=== PATIENT | female | born 1965 | race Asian ===

== ENCOUNTER 2019-01-06 22:28 | Emergency (ER) | payer OTHER, SELFPAY ==
[2019-01-06 22:31] VITALS: PULSE 213; RESP 24; TEMP 36.2; O2SAT 99
--- NOTE | 2019-01-06 22:54 | DI.RAD.S_ITS ---
PROCEDURE: XR CHEST 1V INDICATIONS: chest pain TECHNIQUE: One view of the chest was acquired. COMPARISON: None. FINDINGS: Surgical changes and devices: None. Lungs and pleura: Mild bilateral perihilar and basilar opacity. No pleural effusions or pneumothorax. Mediastinum: Mediastinal contours appear normal. Heart size is normal. Bones and chest wall: No suspicious bony lesions. Overlying soft tissues appear unremarkable. IMPRESSION: Mild and pneumonia. Findings discussed with Dr. Euabnks on 01.07.19 at 1002 hrs. Dictated by: Elvira Smiley M.D. on 01/07/2019 at 10:01 Approved by: Elvira Smiley M.D. on 01/07/2019 at 10:03
[2019-01-06 22:58] VITALS: BP 105/76; PULSE 95; RESP 16; O2SAT 99
--- NOTE | 2019-01-06 23:02 | PC.NURSE ---
6 mg Adenosine given rapid IVP with Dr Rao at bedside. Pt converted to sinus tach. Tolerated well. VSS.
[2019-01-06] MEDS: ASPIRIN 81 MG TAB 324 MG PO (23:10)
[2019-01-06] MEDS: SODIUM CHLORIDE 0.9% 1,000 ML 1000 ML IV (23:11)
[2019-01-06 23:19] LABS: Add Manual Diff / Slide Review NO; Basophils Absolute Auto 0 /uL (0-100); Basophils Percent Auto 0.4 % (0-2); Eosinophils Absolute Auto 0 /uL (0-450); Eosinophils Percent Auto 0.4 % (2-4); Hematocrit 41.5 % (36-46); Hemoglobin 13.9 g/dL (12.0-16.0); Lymphocytes Absolute Auto 1700 /uL (1100-4500); Lymphocytes Percent Auto 16.6 % (25-40); Mean Corpuscular HGB Conc 33.5 % (30-36); Mean Corpuscular Hemoglobin 27.4 PG (26-34); Mean Corpuscular Volume 81.6 fL (80-100); Monocytes Absolute Auto 600 /uL (0-900); Monocytes Percent Auto 5.5 % (3-14); Neutrophils Absolute Auto 7800 /uL (1500-7000); Neutrophils Percent Auto 77.1 % (50-75); Platelet Count 280 X10^3/uL (150-400); Red Blood Cell Count 5.08 X10^6/uL (4.0-5.2); Red Cell Distribution Width 14.3 % (11.6-14.8); White Blood Cell Count 10.1 X10^3/uL (4.5-11.0)
[2019-01-06 23:26] LABS: Alanine Aminotransferase 25 IU/L (9-52); Albumin Globulin Ratio 1.1 (1.0-2.8); Alkaline Phosphatase 64 U/L (38-126); Aspartate Aminotransferase 17 IU/L (14-36); Bilirubin Total 0.5 mg/dL (0.2-1.3); Blood Urea Nitrogen 20 mg/dL (7-17); Calcium 8.8 mg/dL (8.4-10.2); Carbon Dioxide 20 mmol/L (22-32); Chloride 105 mmol/L (98-107); Creatine Kinase 56 U/L (30-135); Estimated Glomerular Filt Rate > 60.0 mL/min (>60); Globulin 3.5 g/dL (1.7-4.1); Glucose 138 mg/dL (70-100); HEMOLYSIS < 15 (0-50); Lipase 58 U/L (23-300); Sodium 138 mmol/L (137-145); Total Protein 7.5 g/dL (6.3-8.2)
[2019-01-06 23:35] VITALS: BP 117/75; PULSE 98; RESP 20; O2SAT 99
[2019-01-06 23:38] LABS: Troponin I 0.093 ng/mL (0.01-0.034)
[2019-01-06] MEDS: ADENOSINE 6 MG/2 ML VIAL IV (23:45)
--- NOTE | 2019-01-06 23:55 | ED.CHESTPAIN ---
HPI - Chest Pain General Chief Complaint: Chest Pain Stated Complaint: CP Time Seen by Provider: 01/06/19 22:52 Source: patient Mode of arrival: ambulatory Limitations: no limitations History of Present Illness HPI narrative: Patient is a 53-year-old female presenting with chest discomfort. He says it started suddenly she got extremely short of breath slightly dizzy she did not pass out. She is noted to be in SVT with a heart rate in the 200 on the monitor. This is never happened to her before. She is visiting from [place]. She tried bearing down and coughing without any relief. MD complaint: chest pain Duration: constant Onset: during rest Pain location: substernal Severity: mild Related Data Allergies Allergy/AdvReac Type Severity Reaction Status Date / Time No Known Drug Allergies Allergy Verified 01/06/19 23:09 Review of Systems Review of Systems GENERAL: Denies chills, fatigue, malaise, fever, sweats, travel HEENT: Denies sinus pain, ear pain, sore throat, difficulty swallowing, neck pain RESPIRATORY: Denies dyspnea, cough, wheezing, hemoptysis, sputum. CARDIOVASCULAR: See HPI GASTROINTESTINAL: Denies nausea, vomiting, abdominal pain, diarrhea, constipation, melena. : Denies dysuria, frequency, incontinence, hematuria, urinary retention, flank pain. MUSCULOSKELETAL: Denies weakness, joint pain, or bony pain SKIN: No rash, no erythema, no pruritus NEUROLOGIC: Denies weakness, dizziness, headache, numbness, change in speech, confusion PSYCHIATRIC: No concerning psychosocial issues. 12 point review of systems is negative except for those stated above and HPI FOR[facility]LY [facility], [facility] Medical History Patient denies significant medical history (Acute) Exam Initial Vital Signs Initial Vital Signs: Vital Signs Temperature 97.2 F L 01/06/19 22:31 Pulse Rate 213 H 01/06/19 22:31 Respiratory Rate 24 01/06/19 22:31 Pulse Oximetry 99 01/06/19 22:31 GENERAL: Well-appearing, well-nourished and in no acute distress. HEENT: Head atraumatic,EOMI, pupils reactive, CARDIOVASCULAR: Regular tachycardic no murmur RESPIRATORY: Breath sounds equal bilaterally, no wheezes rales or rhonchi. ABDOMEN: Soft, nontender. Normoactive bowel sounds all 4 quadrants. No guarding or rebound. EXTREMITIES: Normal range of motion, no clubbing or edema. Neurovascularly intact NEUROLOGICAL: Alert and oriented x4.Normal gait and speech. Cranial nerves II through XII grossly intact. SKIN: Warm, dry, no laceration, no petechiae, no rashes or lesions. Course Orders Ordered: ED Orders 01/06/19 22:54 XR chest 1V Stat EKG-12 Lead Stat 01/06/19 23:06 Complete Blood Count AUTO DIFF Stat Comprehensive Metabolic Panel Stat Lipase Stat Troponin & CK Cardiac Panel Stat 01/07/19 EKG-12 Lead Routine Discontinued Medications Adenosine (Adenocard) 6 mg IV NOW ONE Stop: 01/07/19 00:29 Last Admin: 01/06/19 23:45 Dose: 6 mg Aspirin (Aspirin Chew) 324 mg PO NOW ONE Stop: 01/06/19 22:54 Last Admin: 01/06/19 23:10 Dose: 162 mg Sodium Chloride (Normal Saline 0.9%) 1,000 mls @ 1,000 mls/hr IV CONT LEYDI Last Infusion: 01/07/19 00:39 Dose: 0 mls/hr Admin: 01/06/19 23:11 Dose: 1,000 mls/hr Vital Signs - 8 hr 01/06/19 22:31 01/06/19 22:58 01/06/19 23:35 Temperature 97.2 F L Pulse Rate 213 H 95 H 98 H Respiratory Rate 24 16 20 Blood Pressure [Left Arm] 105/76 117/75 Pulse Oximetry 99 99 99 01/07/19 00:19 Temperature Pulse Rate 88 Respiratory Rate 16 Blood Pressure [Left Arm] 114/83 Pulse Oximetry 98 MDM - Chest Pain Lab Data Attestation: I reviewed the patient's lab results. Result diagrams: 01/06/19 23:06 01/06/19 23:06 Lab Results 01/06/19 01/06/19 Range/Units 23:06 23:06 WBC 10.1 (4.5-11.0) X10^3/uL RBC 5.08 (4.0-5.2) X10^6/uL Hgb 13.9 (12.0-16.0) g/dL Hct 41.5 (36-46) % MCV 81.6 (80-100) fL MCH 27.4 (26-34) PG MCHC 33.5 (30-36) % RDW 14.3 (11.6-14.8) % Plt Count 280 (150-400) X10^3/uL Neut % (Auto) 77.1 H (50-75) % Lymph % (Auto) 16.6 L (25-40) % [place] % (Auto) 5.5 (3-14) % Eos % (Auto) 0.4 L (2-4) % Baso % (Auto) 0.4 (0-2) % Neut # (Auto) 7800 H (3360-8132) /uL Lymph # (Auto) 1700 (9855-0708) /uL [place] # (Auto) 600 (0-900) /uL Eos # (Auto) 0 (0-450) /uL Baso # (Auto) 0 (0-100) /uL Sodium 138 (137-145) mmol/L Potassium 4.0 (3.4-5.1) mmol/L Chloride 105 (98-107) mmol/L Carbon Dioxide 20 L (22-32) mmol/L BUN 20 H (7-17) mg/dL Creatinine 0.80 (0.52-1.04) mg/dL Estimated GFR > 60.0 (>60) mL/min BUN/Creatinine Ratio 25.0 H (6-22) Glucose 138 H (70-100) mg/dL Calcium 8.8 (8.4-10.2) mg/dL Total Bilirubin 0.5 (0.2-1.3) mg/dL AST 17 (14-36) IU/L ALT 25 (9-52) IU/L Alkaline Phosphatase 64 (38-126) U/L Total Creatine Kinase 56 (30-135) U/L CK-MB (CK-2) TNP CK-MB (CK-2) Rel Index TNP Troponin I 0.093 H (0.01-0.034) ng/mL Total Protein 7.5 (6.3-8.2) g/dL Albumin 4.0 (3.5-5.0) g/dL Globulin 3.5 (1.7-4.1) g/dL Albumin/Globulin Ratio 1.1 (1.0-2.8) Lipase 58 (23-300) U/L Imaging Data Chest x-ray: Attestation: I personally reviewed and interpreted this imaging study as follows: My impression: No acute cardiopulmonary process ECG Data Attestation: I personally reviewed and interpreted this ECG as follows: Prior ECG tracings: not available for review Interpretation: EKG 1.: SVT rate 1927 EKG 2. Is normal sinus rhythm rate 89 appear interval [address] changes no T-wave inversions MDM Narrative Medical decision making narrative: Patient converted with 6 mg of adenosine. To a normal sinus rhythm. His troponin is indeterminate but likely from tachycardia. She no longer has chest pain is overall feeling much better. Discharge Plan Departure Patient Disposition: Home Clinical Impression: Paroxysmal supraventricular tachycardia Discharge Date/Time: 01/07/19 00:42 Interventions: ED Discharge Assessment Last Done: 01/07/19 00:40 Instructions: Paroxysmal Supraventricular Tachycardia
[2019-01-07 00:19] VITALS: BP 114/83; PULSE 88; RESP 16; O2SAT 98
== END 2019-01-07 00:42 | disposition home or self-care (01) ==
PROVIDERS: Emergency Provider Emergency Medicine
DX: I47.1 Supraventricular tachycardia (principal)
CPT/HCPCS: 36415; 71045; 80053; 82550; 83690; 84484; 85025; 93005; 96361; 96374; 99283; 99291; J0153